=== PATIENT | male | born 1960 | race Caucasian/White ===

== ENCOUNTER 2017-03-21 01:00 | Emergency (ER) | payer OTHER ==
[2017-03-21] MEDS ORDERED: ASPIRIN 81 MG CHEW TAB ONE (01:12)
[2017-03-21] MEDS ORDERED: ASPIRIN 81 MG CHEW TAB PO ONE (01:12)
[2017-03-21 01:40] LABS: BASOPHILS % 0.7 (0.0-1.5); EOSINOPHILS % 1.5 % (0.0-6.8); MEAN CORPUSCULAR VOLUME 92.7 fl (80.0-100.0); MONOCYTES % 8.3 % (0.0-11.0); NEUTROPHILS # 6.1 # k/uL (1.4-7.7)
[2017-03-21 01:56] LABS: eGFR (African) > 60; eGFR (Non-African) > 60
--- NOTE | 2017-03-21 02:08 | ED Physician Documentation ---
Chest Pain - HISTORIAN Historian: patient - HPI Stated Complaint: CHEST PAIN Chief Complaint: General Adult Onset: hours Timing: gradual onset Last known Well Date: 03/21/17 Last Known Well Time: 22:00 Last known Well Code/Unknown Code: Known Context: rest Severity: moderate Quality: pressure, tightness Chest Pain Radiation: other (right arm) Chest Pain Signs/Symptoms: diaphoresis. 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 On arrival to ER patient denies any CP. Patient states he went to bed around 2200, had gradual onset of CP 5-6/10 accompanied by diaphoresis. Denies any nausea or SOB. Patient states the pain did not stop until he got to the ER. Denies any previous episodes. 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[place]) - ROS CONST: none MS/LYMPH: none GI/: none EYES/ENT: none SKIN/ENDO: none NEURO/PSYCH: none - PAST HX [place] risk factors: diabetes Type 2 DVT/PE Risk Factors: none TAD/AAA risk factors: none Neuro deficit: none GI disease: none Surgeries/Procedures: other (knee arthroscopy) Allergies/Adverse Reactions: Allergies Allergy/AdvReac Type Severity Reaction Status Date / Time No Known Allergies Allergy Verified 03/21/17 01:16 Home Medications: Ambulatory Orders Medication Instructions Recorded Metformin HCl [Glucophage] 500 mg PO DAILY 03/21/17 Testosterone [Axiron] 30 mg IM Q7D 03/21/17 - SOCIAL HX Smoking History: non-smoker - FAMILY HX Family HX: CAD over 55 - VITAL SIGNS Vital Signs: Vital Signs Temp Pulse Resp BP Pulse Ox 66 16 157/75 98 03/21/17 01:41 03/21/17 01:00 03/21/17 01:00 03/21/17 01:41 - REVIEWED ASSESSMENTS Nursing Assessment Reviewed: Yes Vitals Reviewed: Yes Progress - EKG/XRAY/CT EKG: NSR (rate 78, no acute changes) ED Results Lab/Radiology - Lab Results Lab Results: Lab Results 03/21/17 03/21/17 03/21/17 01:34 01:34 01:33 WBC 8.70 K/ul K/ul (4.00-12.00) RBC 5.43 M/ul H M/ul (3.90-5.20) Hgb 16.8 g/dL g/dL (12.0-18.0) Hct 50.4 % % (37.0-53.0) MCV 92.7 fl fl (80.0-100.0) MCH 31.0 pg pg (28.0-34.0) MCHC 33.4 g/dL g/dL (30.0-36.0) RDW 13.9 % % (11.3-14.3) Plt Count 239 K/mm3 K/mm3 (130-400) Neut % (Auto) 70.4 % % (39.0-79.0) Lymph % (Auto) 17.6 % % (16.0-50.0) [place] % (Auto) 8.3 % % (0.0-11.0) Eos % (Auto) 1.5 % % (0.0-6.8) Baso % (Auto) 0.7 (0.0-1.5) Neut # (Auto) 6.1 # k/uL # k/uL (1.4-7.7) Lymph # (Auto) 1.5 # k/uL # k/uL (0.6-4.0) [place] # (Auto) 0.7 # k/uL # k/uL (0.0-0.9) Eos # (Auto) 0.1 # k/uL # k/uL (0.0-0.6) Baso # (Auto) 0.1 # k/uL # k/uL (0.0-0.5) Reactive Lymphs % 1.4 % % (0.0-5.0) Reactive Lymphs # 0.1 # k/uL # k/uL (0.0-0.8) Sodium 138 mmol/L mmol/L (136-145) Potassium 3.5 mmol/L mmol/L (3.5-5.0) Chloride 105 mmol/L mmol/L (98-110) Carbon Dioxide 28 mmol/L mmol/L (20-32) BUN 10 mg/dL mg/dL (10-26) Creatinine 1.2 mg/dL mg/dL (0.4-1.5) Estimated Creat Clear 101 Est GFR ( Amer) > 60 (60 - ) Est GFR (Non-Af Amer) > 60 (60 - ) Glucose 165 mg/dL H mg/dL (70-99) Calcium 9.7 mg/dL mg/dL (8.5-10.5) Total Bilirubin 0.4 mg/dL mg/dL (0.2-1.2) AST 28 U/L U/L (0-41) ALT 44 U/L U/L (0-45) Alkaline Phosphatase 76 U/L U/L (46-116) Creatine Kinase 61 U/L U/L (0-225) CK-MB (CK-2) 1.0 ng/mL ng/mL (0.0-5.6) Troponin I < 0.03 ng/mL L ng/mL (0.03-0.06) Total Protein 7.4 g/dL g/dL (6.0-8.5) Albumin 4.5 g/dL g/dL (3.0-5.5) - Radiology Radiology Impressions: Pa and lateral chest Clinical history : Chest pain Technique pa and lateral upright Findings: The lung pathak are clear. I see no hilar or mediastinal mass. There is no pleural effusion or lesion of the bony thorax. A calcified granuloma is present in the right lung base. Impression: No acute pulmonary disease Electronically signed on Mar 21, 2017 1:33:06 AM CDT by: Karl Dailey - Orders Orders: ED Orders Category Date Time Status Continuous EKG monitoring Q30M Care 03/21/17 01:11 Active Continuous Pulse Oximetry Q30M Care 03/21/17 01:[address] IV Lock 1T Care 03/21/17 01:11 Active CHEST 2 VIEW [CHEST P.A.&LAT 2 VIEWS] [RAD] Stat Exams 03/21/17 Taken CBC/PLATELET/DIFF Stat Lab 03/21/17 01:34 Completed CKMB Stat Lab 03/21/17 01:33 Completed CMP Stat Lab 03/21/17 01:34 Completed CREATINE KINASE Stat Lab 03/21/17 01:34 Completed TROPONIN I (cTnI) Stat Lab 03/21/17 01:33 Completed UA W/MICRO IF INDICATED Stat Lab 03/21/17 01:11 Ordered Aspirin Med 03/21/17 01:12 Discontinued 324 mg .ROUTE .STK-MED ONE Aspirin Med 03/21/17 01:12 Discontinued 324 mg PO NOW ONE Oxygen Daily Oxygen 03/21/17 01:15 Ordered EKG WITH COMPARISON Stat Ther 03/21/17 01:11 Ordered Chest Pain Physical Exam - EXAM General Appearance: no acute distress, alert EENT: eye inspection normal, no signs of dehydration, ELIZABETH Respiratory: no resp. distress, chest non-tender, nml breath sounds CVS: reg. 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
[2017-03-21 02:49] VITALS: BP 149/65
--- NOTE | 2017-03-21 07:13 | Diagnostic Imaging Report ---
[facility] [id number] [facility].[address] [address] Report Submission Date: Mar 21, 2017 1:33:06 AM CDT Patient Study Name: GURPREET KELLEY Date: Mar 21, 2017 1:16:23 AM CDT Modality Type: CR Gender: F Description: CHEST : 60 Institution: [facility] Physician: FER MAN (UTILITY TECH) - ER Pa and lateral chest Clinical history : Chest pain Technique pa and lateral upright Findings: The lung pathak are clear. I see no hilar or mediastinal mass. There is no pleural effusion or lesion of the bony thorax. A calcified granuloma is present in the right lung base. Impression: No acute pulmonary disease Electronically signed on Mar 21, 2017 1:33:06 AM CDT by: Karl BANUELOS
== END 2017-03-21 02:10 | disposition home or self-care (01) ==
LOC: ED 01:00
DX: R07.89 Other chest pain (principal)
CPT/HCPCS: 71020; 80053; 82550; 82553; 84484; 85025; 99283; S1016